=== PATIENT | female | born 1940 ===

== ENCOUNTER 2019-12-14 15:31 | Emergency (ER) | payer SELFPAY ==
--- NOTE | 2019-12-14 18:02 | Emergency Department Report ---
Blank Doc - Documentation Documentation: 79-year-old female that presents with abdominal pain and dizziness. This initial assessment/diagnostic orders/clinical plan/treatment(s) is/are subject to change based on patient's health status, clinical progression and re- assessment by fellow clinical providers in the ED. Further treatment and workup at subsequent clinical providers discretion. Patient/guardians urged not to elope from the ED as their condition may be serious if not clinically assessed and managed. Initial orders include: 1- Patient sent to MAIN ED for further evaluation and treatment 2- labs 3- UA
[2019-12-14 18:39] LABS: Basophils # (Auto) 0.1 K/mm3 (0.0-0.1); Basophils % (Auto) 0.7 % (0.0-1.8); Eosinophils # (Auto) 0.2 K/mm3 (0.0-0.4); Eosinophils % (Auto) 1.7 % (0.0-4.3); Hematocrit 44.6 % (30.3-42.9); Hemoglobin 14.9 gm/dl (10.1-14.3); Lymphocytes # (Auto) 1.9 K/mm3 (1.2-5.4); Lymphocytes % (Auto) 16.7 % (13.4-35.0); Mean Corpuscular HGB Conc 33 % (30-34); Mean Corpuscular Volume 83 fl (79-97); Monocytes # (Auto) 0.6 K/mm3 (0.0-0.8); Platelet Count 227 K/mm3 (140-440); Red Blood Count 5.37 M/mm3 (3.65-5.03); Red Cell Distribution Width 13.9 % (13.2-15.2)
[2019-12-14 18:53] LABS: Bilirubin,Urine NEG (Negative); Blood,Urine LG (Negative); Color,Urine Yellow (Yellow); Mucus,Urine FEW /HPF; Urobilinogen,Urine < 2.0 mg/dL (<2.0)
[2019-12-14 19:02] LABS: Alanine Aminotransferase 16 units/L (7-56); Albumin 4.5 g/dL (3.9-5); BUN/Creatinine Ratio 26; Blood Urea Nitrogen 21 mg/dL (7-17); Calcium 9.9 mg/dL (8.4-10.2); Hemolysis Index 7
[2019-12-14 19:12] LABS: WBC,Urine > 182.0 /HPF (0.0-6.0)
[2019-12-14] MEDS: PHENAZOPYRIDINE 200 MG TAB PO ONE (21:12)
[2019-12-14] MEDS: levoFLOXacin 500 MG TAB PO ONE (21:12)
[2019-12-14 21:13] VITALS: BP 140/60
--- NOTE | 2019-12-14 21:20 | Emergency Department Report ---
ED Abdominal Pain HPI - General Chief Complaint: Abdominal Pain Stated Complaint: INFECTION/STOMACH PAIN Time Seen by Provider: 12/14/19 17:46 Source: patient Mode of arrival: Ambulatory Limitations: No Limitations - History of Present Illness Initial Comments: Patient is a 79-year-old female who is stating that she has some lower abdominal pain and dysuria for the last week. Patient is at a snf states that the transportation inspector of the snf number to the hospital. She denies nausea vomiting fevers or chills. Patient states she walked here secondary to wanting to be checked out for which she believes is infection. - Related Data Previous Rx's Medication Instructions Recorded Last Taken Type Ciprofloxacin HCl [Ciprofloxacin 500 mg PO Q12HR #14 tab 12/14/19 Unknown Rx TAB] Phenazopyridine [Pyridium] 200 mg PO BID #6 tab 12/14/19 Unknown Rx traMADoL [Ultram] 50 mg PO Q6HR PRN #12 tablet 12/14/19 Unknown Rx Allergies Allergy/AdvReac Type Severity Reaction Status Date / Time No Known Allergies Allergy Unverified 12/14/19 18:03 ED Review of Systems ROS: Stated complaint: INFECTION/STOMACH PAIN Other details as noted in HPI Comment: All other systems reviewed and negative ED Past Medical Hx - Social History Smoking Status: Never Smoker Substance Use Type: None - Medications Home Medications: Home Medications Medication Instructions Recorded Confirmed Last Taken Type Ciprofloxacin HCl [Ciprofloxacin 500 mg PO Q12HR #14 tab 12/14/19 Unknown Rx TAB] Phenazopyridine [Pyridium] 200 mg PO BID #6 tab 12/14/19 Unknown Rx traMADoL [Ultram] 50 mg PO Q6HR PRN #12 tablet 12/14/19 Unknown Rx ED Physical Exam - General Limitations: No Limitations General appearance: alert, in no apparent distress - Head Head exam: Present: atraumatic, normocephalic - Eye Eye exam: Present: normal appearance - ENT ENT exam: Present: mucous membranes moist - Neck Neck exam: Present: normal inspection - Respiratory Respiratory exam: Present: normal lung sounds bilaterally. Absent: respiratory distress, wheezes, rales, rhonchi - Cardiovascular Cardiovascular Exam: Present: regular rate, normal rhythm, normal heart sounds. Absent: systolic murmur, diastolic murmur, rubs, gallop - GI/Abdominal GI/Abdominal exam: Present: soft, tenderness (suprapubic), normal bowel sounds. Absent: distended, guarding, rebound, rigid - Extremities Exam Extremities exam: Present: normal inspection - Back Exam Back exam: Present: normal inspection - Neurological Exam Neurological exam: Present: alert, oriented X3 - Psychiatric Psychiatric exam: Present: normal affect, normal mood - Skin Skin exam: Present: warm, dry, intact, normal color. Absent: rash ED Course Vital Signs 12/14/19 12/14/19 12/14/19 16:28 21:13 21:14 Temperature 98.6 F Pulse Rate 81 85 Respiratory 16 16 16 Rate Blood Pressure 128/62 Blood Pressure 140/60 [Right] O2 Sat by Pulse 95 99 99 Oximetry ED Medical Decision Making - Lab Data Result diagrams: 12/14/19 18:14 12/14/19 18:14 Lab Results 12/14/19 12/14/19 12/14/19 Range/Units 18:14 18:14 18:33 WBC 11.7 H (4.5-11.0) K/mm3 RBC 5.37 H (3.65-5.03) M/mm3 Hgb 14.9 H (10.1-14.3) gm/dl Hct 44.6 H (30.3-42.9) % MCV 83 (79-97) fl MCH 28 (28-32) pg MCHC 33 (30-34) % RDW 13.9 (13.2-15.2) % Plt Count 227 (140-440) K/mm3 Lymph % (Auto) 16.7 (13.4-35.0) % Frontier % (Auto) 5.0 (0.0-7.3) % Eos % (Auto) 1.7 (0.0-4.3) % Baso % (Auto) 0.7 (0.0-1.8) % Lymph # 1.9 (1.2-5.4) K/mm3 Frontier # 0.6 (0.0-0.8) K/mm3 Eos # 0.2 (0.0-0.4) K/mm3 Baso # 0.1 (0.0-0.1) K/mm3 Seg Neutrophils % 75.9 H (40.0-70.0) % Seg Neutrophils # 8.9 H (1.8-7.7) K/mm3 Sodium 139 (137-145) mmol/L Potassium 3.7 (3.6-5.0) mmol/L Chloride 100.3 (98-107) mmol/L Carbon Dioxide 25 (22-30) mmol/L Anion Gap 17 mmol/L BUN 21 H (7-17) mg/dL Creatinine 0.8 (0.7-1.2) mg/dL Estimated GFR > 60 ml/min BUN/Creatinine Ratio 26 % Glucose 214 H (65-100) mg/dL Calcium 9.9 (8.4-10.2) mg/dL Total Bilirubin 0.30 (0.1-1.2) mg/dL AST 25 (5-40) units/L ALT 16 (7-56) units/L Alkaline Phosphatase 87 (35-129) units/L Total Protein 7.4 (6.3-8.2) g/dL Albumin 4.5 (3.9-5) g/dL Albumin/Globulin Ratio 1.6 % Lipase 34 (13-60) units/L Urine Color Yellow (Yellow) Urine Turbidity Cloudy (Clear) Urine pH 5.0 (5.0-7.0) Ur Specific [place] 1.018 (1.003-1.030) Urine Protein 30 mg/dl (Negative) mg/dL Urine Glucose (UA) Neg (Negative) mg/dL Urine Ketones Neg (Negative) mg/dL Urine Blood Lg (Negative) Urine Nitrite Neg (Negative) Urine Bilirubin Neg (Negative) Urine Urobilinogen < 2.0 (<2.0) mg/dL Ur Leukocyte Esterase Lg (Negative) Urine WBC (Auto) > 182.0 H (0.0-6.0) /HPF Urine RBC (Auto) 160.0 (0.0-6.0) /HPF Urine Mucus Few /HPF Urine Yeast (Budding) 2+ /HPF - Medical Decision Making Patient is a 79-year-old female who is presenting with hematuria and suprapubic pain. Patient also states she has some mild blood in the urine as well. Patient does show evidence of acute cystitis. Patient be started on Cipro as well as a medication for symptomatic relief and should be discharged home. Critical care attestation.: If time is entered above; I have spent that time in minutes in the direct care of this critically ill patient, excluding procedure time. ED Disposition Clinical Impression: Acute cystitis Qualifiers: Hematuria presence: with hematuria Qualified Code(s): N30.01 - Acute cystitis with hematuria Disposition: TO HOME OR SELFCARE Is pt being admited?: No Does the pt Need Aspirin: No Condition: Stable Instructions: Urinary Tract Infection in Women (ED) Referrals: EMILY MCCLELLAND MD [Staff Physician] - 3-5 Days Time of Disposition: 21:20
== END 2019-12-14 22:24 | disposition home or self-care (01) ==
LOC: ED 15:31
DX: N30.00 Acute cystitis without hematuria (principal); Z79.899 Other long term (current) drug therapy
CPT/HCPCS: 36415; 80053; 81001; 83690; 85025

== ENCOUNTER 2019-12-24 20:01 | Emergency (ER) | payer MEDICARE ==
--- NOTE | 2019-12-25 00:37 | Emergency Department Report ---
Chief Complaint: Weakness Stated Complaint: BODY PAIN Time Seen by Provider: 12/25/19 00:32 - HPI History of Present Illness: Ms. Cunningham is a 79-year-old female with history of fibromyalgia for the last 5 years which has gotten worse over the past year. She desires medication for diffuse body pain and sleep. She attempted to see a new PCP today. However she was unsuccessful. She currently is not taking any pain medication. She received recent prescription here May 14 for tramadol. - Exam Vital Signs: Vital Signs 12/24/19 21:10 Temperature 97.8 F Pulse Rate 83 Respiratory 14 Rate Blood Pressure 163/78 O2 Sat by Pulse 96 Oximetry Physical Exam: Ms Cunningham appears well she is lively talkative and smiling. She appears comfortable She moves and walks briskly MSE screening note: Focused history and physical exam performed. Due to findings the following was ordered: ED Medical Decision Making - Medical Decision Making Mrs. Cunningham presents with request for pain medication for fibromyalgia. I have provided a referral to outpatient medicine physician. I have attempt to explain that nonemergent conditions will be referred to outpatient medicine physician. ED Disposition for MSE Clinical Impression: Fibromyalgia Disposition: Z- MED SCREENING EXAM-LEFT Is pt being admited?: No Does the pt Need Aspirin: No Condition: Stable Additional Instructions: Please see our outpatient medicine physician in order to have your condition adequately managed. Referrals: EMILY MCCLELLAND MD [Staff Physician] - 3-5 Days
[2019-12-25 00:53] VITALS: BP 149/83
== END 2019-12-25 00:46 | disposition left against medical advice (07) ==
LOC: ED 20:01
DX: M79.7 Fibromyalgia (principal)